=== PATIENT | male | born 2005 | race Two or more races ===

== ENCOUNTER 2025-06-25 20:41 | Emergency (ER) | payer OTHER ==
[~2025-06-25] VITALS: Ht 170.2 cm; Wt 81.6 kg
[2025-06-25 21:16] VITALS: BP 118/82; O2SAT 99
[2025-06-25] MEDS ORDERED: CEFAZOLIN SODIUM 1,000 MG VIAL IV SCH (23:00)
[2025-06-25] MEDS ORDERED: KETOROLAC TROMETHAMINE 30 MG VIAL IV ONE (23:00)
[2025-06-25] MEDS ORDERED: KETOROLAC TROMETHAMINE 30 MG VIAL ONE (23:13)
[2025-06-25] MEDS ORDERED: CEFAZOLIN SODIUM 1,000 MG VIAL ONE (23:13)
== END 2025-06-26 01:16 | disposition home or self-care (01) ==
LOC: ER 20:41 → EMR PED 20:41
DX: L60.0 Ingrowing nail (principal)